=== PATIENT | female | born 1990 | race Caucasian/White ===

== ENCOUNTER 2016-12-09 21:31 | Inpatient (IN) | payer MEDICAID ==
[~2016-12-09] VITALS: Ht 149.9 cm; Wt 65.4 kg
[~2016-12-09 21:31] MED LIST: FERR27TA; [UNRECOGNIZED DRUG - OTHER]
[2016-12-09 21:38] VITALS: Ht 149.9 cm; Wt 65.4 kg
[2016-12-09] MEDS ORDERED: TERBUTALINE 0 ML ONE (22:12)
[2016-12-09 22:24] VITALS: BP 127/70; PULSE 61; RESP 18
[2016-12-09] MEDS ORDERED: TERBUTALINE 1 MG/ML INJ SC ONE (22:30)
[2016-12-09 22:55] LABS: ADD UMIC YES; URINE BILIRUBIN (Dip) NEGATIVE (NEGATIVE); URINE BLOOD (Dip) 2+ (NEGATIVE); URINE COLOR LT. YELLOW (YELLOW); URINE GLUCOSE (Dip) NEGATIVE (NEGATIVE); URINE KETONES (Dip) 15 (NEGATIVE); URINE LEUKOCYTE ESTERASE (Dip) TRACE (NEGATIVE); URINE NITRITE (Dip) NEGATIVE (NEGATIVE); URINE TOTAL PROTEIN (Dip) NEGATIVE (NEGATIVE); URINE UROBILINOGEN (Dip) 0.2 E.U./dL (0.1-1.0)
[2016-12-09] MEDS ORDERED: OXYTOCIN 30 UNITS/LR 500 ML IV PRN (23:00)
[2016-12-09] MEDS ORDERED: IBUPROFEN 600 MG TAB PO PRN (23:00)
[2016-12-09] MEDS ORDERED: CARBOPROST 250 MCG INJ IM PRN (23:00)
[2016-12-09] MEDS ORDERED: ACETAMINOPHEN/CODEINE #3 TAB PO PRN (23:00)
[2016-12-09] MEDS ORDERED: METHYLERGONOVINE 0.2 MG INJ IM PRN (23:00)
[2016-12-09] MEDS ORDERED: BUTORPHANOL 2 MG INJ IV PRN (23:00)
[2016-12-09] MEDS ORDERED: OXYTOCIN 30 UNITS/LR 500 ML IV SCH ×2 (23:00)
[2016-12-09] MEDS ORDERED: LACTATED RINGER'S 1,000 ML IV PRN (23:00)
[2016-12-09] MEDS ORDERED: LIDOCAINE 1% (MPF) 30 ML INJ INJ PRN (23:00)
[2016-12-09] MEDS ORDERED: MISOPROSTOL 200 MCG TAB PR PRN (23:00)
[2016-12-09 23:03] LABS: BACTERIA,URINE FEW; SQUAMOUS EPITHELIAL CELL,UR MANY
[2016-12-09 23:12] LABS: BASOPHILS % 0.2 % (0.0-2.0); EOSINOPHILS # 0.1 10^3/ul (0.0-0.5); EOSINOPHILS % 0.4 % (0.0-7.0); HEMATOCRIT 37.5 % (37.0-47.0); HEMOGLOBIN 12.9 g/dl (12.0-16.0); LYMPHOCYTES # 3.1 10^3/ul (0.8-2.9); LYMPHOCYTES % 22.8 % (15.0-51.0); MEAN CORPUSCULAR HEMOGLOBIN 30.1 pg (29.0-33.0); MEAN CORPUSCULAR HGB CONC 34.3 g/dl (32.0-37.0); MEAN CORPUSCULAR VOLUME 87.8 fl (82.0-101.0); MONOCYTE # 0.6 10^3/ul (0.3-0.9); MONOCYTES % 4.4 % (0.0-11.0); NEUTROPHIL # 9.9 10^3/ul (1.6-7.5); NEUTROPHILS % 72.2 % (39.0-77.0); PLATELET COUNT 235 10^3/UL (140-440); RED BLOOD COUNT 4.27 10^6/ul (4.20-5.40); RED CELL DISTRIBUTION WIDTH 13.2 % (11.5-14.5); UNCORRECTED WBC 13.7 10^3/ul (4.8-10.8); WHITE BLOOD COUNT 13.7 10^3/ul (4.8-10.8)
[2016-12-09 23:17] LABS: CONDITION 1
[2016-12-09 23:20] LABS: INR 0.88; PROTIME 11.9 Sec (12.2-14.2); PT RATIO 0.9
[2016-12-09 23:21] LABS: PARTIAL THROMBOPLASTIN TIME 29.6 Sec (25.0-35.0)
[2016-12-09] MEDS: LACTATED RINGER'S 1,000 ML IV SCH (23:36)
--- NOTE | 2016-12-09 23:40 | HP ---
Date/Time of Note Date/Time of Note DATE: 12/09/16 TIME: 23:21 OB - History Hx of Present Free Text/Dictation 26yo at 38+5 by 12wk U/S with hx of 1LTCS x1 presented to OB triage with c/ o progressively worsening contraction pain since 0700 and LOF since 1400. Pt reports normal FM and denies VB. Prior C/S was performed in 2009 2/2 distress per pt after a 24hr induction with little cervical change. OB course has been uncomplicated. Pt has hx of R breast lumpectomy in 2008 with benign pathology. She has been followed q6 months at [facility] for current R breast mass, unchanged x4 years. Estimated Due Date: Dec 18, 2016 : 2 Para: 1 Care: Good Care Ultrasounds: Normal mid trimester US Obstetrical Complications: None Medical Complications: Other (R breast mass) Past Family/Social History * Past Medical, Surgical, Family and Obstetric Histories reviewed from chart. Blood Type: O+ Rubella: immune RPR/VDRL: Negative GBS Status: Negative HBsAG: Negative OB Admission Exam Vital Signs Vital Signs Vital Signs Date Time Temp Pulse Resp B/P Pulse Ox O2 Delivery O2 Flow Rate FiO2 12/09/16 22:24 98.5 61 18 127/70 Room Air Physical Exam HEENT: WNL Heart: Other (R Breast- 2x2cm mobile mass palpated at 1-2 o'clock position) Lungs: Clear Abdomen: WNL Extremities: Normal Cervical Dilatation: 1cm Effacement: Other (90%) Station: -2 Membranes: Ruptured Amniotic Fluid: Clear Heart Rate: 120's (110s primarily) Accelerations: Accelerations Present Decelerations: No Decelerations Varibility: Moderate Contractions on Admission: < 5 Minutes Apart Intensity: Firm Last 72 hours Lab Results CBC & BMP 12/09/16 22:54 OB Assessment/Plan Other Assessment: 1) Early Labor at early term 2) Hx of C/S x1 Other plan: 1) Labor: Given pt has had a prior C/S, discussed with pt options for mode of delivery, including repeat section versus TOLAC. The risks of TOLAC after a C/S include an approximately <1% risk of uterine rupture which may result in distress and emergent delivery, increasing the risk of maternal and morbidity. Pt is also aware of the risk of failure and need for a repeat section. The expected recovery times for both modes of deliveries were discussed. Pt was made aware that if she chooses TOLAC, she may change her mind and request to proceed with a C/S at any time, if she has not yet delivered. The risks of C/S included but are not limited to pain, infection , damage to nearby organs, structures or injury to baby, bleeding possibly requiring transfusion of blood products and abnormal placentation in future pregnancies. She had an opportunity to ask questions and to discuss the options with her prior to making a decision. Pt desires to proceed with TOLAC. Consent forms for TOLAC, Repeat C/S and transfusion of blood products are in the chart. CEFM and toco. 2) ID: Pt s/p ROM x9 hours. Afebrile. GBS negative. Antibiotics are not indicated. 3) Pain: Pt desires epidural. Anesthesiologist will be consulted once admission labs are resulted. 4) FWB: Category I FHT. Reassuring 5) R Breast Mass: Asymptomatic. Continue expectant management. Pt to f/up at [facility] in 2mths for routine visit. Expectations for admission to L&D, for labor and course if she proceeds with TOLAC were explained, as were the same for repeat C/S. Pt and partner expressed understanding of discussion which was conducted in a language in which they understand. Questions were answered to their satisfaction. CHEIKH HERRERA MD Dec 09, 2016 23:36
[2016-12-09] MEDS ORDERED: FENTAnyl 2MCG/ML-ROPIV 0.2% 100 ML ONE (23:52)
--- NOTE | 2016-12-10 00:03 | TRIAGE ---
OB Triage Datetime Report Generated by CPN: 12/10/2016 00:03 Datetime: 12/09/2016 23:27 Stage of : Labor Datetime: 12/09/2016 23:15 Stage of : OB Triage Labor Evaluation Frequency: 2-5 Monitor Mode: External Duration (sec)2399: 60-130 Quality: Moderate Pattern: Normal: <= 5 Contractions in 10 Minutes Resting Tone [place]: Relaxed Heart Rate FHR Baseline Rate: 120 Monitor Mode: External US Variability: Moderate 6-25 bpm Accelerations: 15X15 Decelerations: None Category: Category I Pain Assessment Pain Scale: 8 Pain Presence: Intermittent Pain Type: Cramping; Contraction; Ache Pain Location: Abdomen; Back Pain Goal: 5 Pain Relief Measures: Comfort Measures Pain Assessment Comments: WANTS EPIDURAL Datetime: 12/09/2016 22:15 Stage of : OB Triage Temperature Route: Oral Labor Evaluation Frequency: 2-3.5 Monitor Mode: External Duration (sec)2399: 60-130 Quality: Moderate Pattern: Normal: <= 5 Contractions in 10 Minutes Resting Tone [place]: Relaxed Heart Rate FHR Baseline Rate: 125 Monitor Mode: External US Variability: Moderate 6-25 bpm Accelerations: 15X15 Decelerations: None Category: Category I Pain Assessment Pain Scale: 8 (Annotations: WHEN CXS COMES) Pain Presence: Intermittent Pain Type: Cramping; Contraction; Ache Pain Location: Abdomen; Back Pain Goal: 5 Pain Relief Measures: Comfort Measures Datetime: 12/09/2016 22:06 Vaginal Exam Dilatation (cms): 1.0 Effacement (%): 90 Station: -2 Exam By: JENNIFER Vaginal Bleeding: None Cervix, Consistency: Soft Cervix, Position: Anterior Datetime: 12/09/2016 21:51 Maternal Assessment Level of Consciousness: Fully Conscious DTR's/Clonus: DTRs 2+; No Clonus Headache: Denies Blurred Vision: No Respiratory Effort: Unlabored; Regular Rhythm; Equal Expansion Breath Sounds, Left: Clear and Equal Breath Sounds, Right: Clear and Equal Nausea/Vomiting: Denies RUQ Epigastric Pain: Denies Lower Extremities Edema: None Upper Extremities Edema: None Facial Edema: None Fall Risk Assessment History of Falling: (0) No Secondary Diagnosis: (0) No Ambulatory Aid: (0) Bedrest/Nurse Assist IV Therapy: (0) No Gait: (0) Normal/Bedrest/Immobile Mental Status: (0) Oriented to Own Ability Fall Score: 0 Fall Risk Score Definition: No Risk: No action required Datetime: 12/09/2016 21:49 Time of Arrival: 12/09/2016 21:35 EGA: 38.5 Arrived By: Wheelchair Arrived From: Home Chief Complaint: CXS SINCE 0700 AND LEAKING SINCE 1400 Movement: Present Contractions: Regular Time Contractions Began: 12/09/2016 07:00 Contractions: Q10 Rupture of Membranes: Unsure Vaginal Bleeding: None Vaginal Discharge: Denies Recent Sexual Intercouse: Denies Abdominal Trauma: Not Applicable Patient Complaints: Contractions Time Provider Notified: 12/09/2016 21:57 Provider Notified: JAVIER Initial Plan: EFM, ASSESSMENT, CALL MD FOR ORDERS Datetime: 12/09/2016 21:48 Membranes Ruptured Date/Time: 12/09/2016 14:00 Membranes Rupture Method: Spontaneous
[2016-12-10] MEDS: LACTATED RINGER'S 1,000 ML IV SCH (00:28)
[2016-12-10] MEDS ORDERED: ACETAMINOPHEN 500 MG TAB PO STA (00:42)
[2016-12-10] MEDS ORDERED: NALOXONE (0.4 MG/ML) INJ IV PRN (04:30)
[2016-12-10] MEDS ORDERED: FENTAnyl 2MCG/ML-ROPIV 0.2% 100 ML BAG EPI SCH (04:30)
[2016-12-10] MEDS ORDERED: TERBUTALINE 1 MG/ML INJ SC STA (04:52)
[2016-12-10] MEDS ORDERED: CEFAZOLIN 1 GM INJ ONE (06:17)
[2016-12-10] MEDS ORDERED: LIDOCAINE 2%/EPI 30 ML INJ ONE (06:19)
[2016-12-10] MEDS ORDERED: FENTAnyl 50 MCG/ML VIAL ONE (06:24)
[2016-12-10] MEDS ORDERED: ONDANSETRON 4 MG INJ IV PRN ×2 (06:30→07:30)
[2016-12-10] MEDS ORDERED: METOCLOPRAMIDE 10 MG INJ IV PRN (06:30)
[2016-12-10] MEDS ORDERED: HYDROmorphONE (0.2 MG/ML) 10ML SYG IV PRN ×3 (06:30)
[2016-12-10] MEDS ORDERED: DIPHENHYDRAMINE 50 MG INJ IV PRN ×2 (06:30→07:30)
[2016-12-10] MEDS ORDERED: MEPERIDINE 25 MG INJ IV PRN (06:30)
[2016-12-10] MEDS ORDERED: OXYCODONE/ACETAMINOPHEN (5/325) TAB PO PRN ×2 (06:30)
[2016-12-10] MEDS: LACTATED RINGER'S 1,000 ML IV* SCH ×3 (07:27→23:27)
--- NOTE | 2016-12-10 07:27 | LDN ---
Date/Time of Note Date/Time of Note DATE: 12/10/16 TIME: 07:27 Delivery Summary Pt progressed to c/c/-1 and labored down to 0 station. She then pushed with good effort to +2, however deep variables were noted to the 60s with pushing. The FHT returned to baseline following pushing, however at times had slow return. Variability largely moderate. Patient then began pushing with alternating contractions, however decels remained. Using a mortgage broker Octavia, stonecutter #[id number], the R/B/A of VAVD (as a double setup in the OR) versus RLTCS were discussed in detail including risks of vacuum which include but are not limited to cephalohematoma, subgaleal hemorrhage, retinal hemorrhage , shoulder dystocia, scalp lacerations and failure. The patient initially desired a RLTCS after being counseled on risks of operative delivery and pt was taken to the OR. En route, however, pt changed her mind and expressed a desire for a trial of vacuum delivery. Pt pushed under epidural anesthesia in the OR under a double setup to a via vaccuum assist of a liveborn male infant weighing 2950g with Apgars of 9 and 9 at 1 and 5 min respectively. Over three contractions with no pull-offs, the head delivered from VON position and the vacuum was removed. The R anterior shoulder followed by the posterior shoulder and the remainder of the body was delivered through a nuchal cord x1. The infant was vigorous at and placed on mother's abdomen. The pt received standard IV Pitocin. The cord was doubly clamped and cut and the baby was taken to the warmer for evaluation by RT and NICU nurses given the operative delivery. Cord blood was collected. An intact 3VC placenta spontaneously delivered shortly thereafter. The fundus was noted to be firm. Inspection of the vagina and perineum revealed a 3rd degree (3b) perineal lacerations and a hemostatic L labial laceration which was not repaired. The 3rd degree laceration was repaired with a combination of regional and local anesthesia using 0 Vicryl suture. Using end-to-end method, interrupted sutures were placed to bring the ends together. The second degree was repaired in the usual fashion using 3-0 Vicryl. The patient received Ancef 2g IV x1. Hemostasis was appropriate following repair. Several rectal examinations were done which confirmed no defect or palpable suture. Infant and mother recovering in PACU. EBL 400ml Assisted Vaginal Delivery: Vacuum Placenta Delivered: Spontaneously Meconium: none Perineum intact?: No Perineal laceration: 3 Anesthesia type: Epidural Estimated blood loss: 400 Sponge & Needle done & correct: Yes All needle counts correct: Yes Any foreign bodies felt in the: No Problems: Infant Delivery Information Sex Infant Sex: male Apgars 1 Minute: 9 5 Minute: 9 Suctioning Nose & mouth suctioned at brittnee: No Delee suction performed: No Umbilical Cord Umbilical cord with: 3 Vessels Cord presentations: nuchal cord Nuchal cord present X: 1 Mother & Baby Disposition Disposition Mom & Baby to Maternity; Good: Yes Baby to NICU: No CHEIKH HERRERA MD Dec 10, 2016 07:27
[2016-12-10] MEDS ORDERED: CARBOPROST 250 MCG INJ IM PRN (07:30)
[2016-12-10] MEDS ORDERED: BENZOCAINE 20% 56 ML SPRAY TOP PRN (07:30)
[2016-12-10] MEDS ORDERED: ACETAMINOPHEN 325 MG TAB PO PRN (07:30)
[2016-12-10] MEDS ORDERED: MISOPROSTOL 200 MCG TAB PR PRN (07:30)
[2016-12-10] MEDS ORDERED: LANOLIN 7 GM TUBE TOP PRN (07:30)
[2016-12-10] MEDS ORDERED: METHYLERGONOVINE 0.2 MG INJ IM PRN (07:30)
[2016-12-10] MEDS ORDERED: DIBUCAINE 1% 30 GM OINT PR PRN (07:30)
[2016-12-10] MEDS ORDERED: OXYTOCIN 30 UNITS/LR 500 ML IV PRN (07:30)
[2016-12-10] MEDS ORDERED: ACETAMINOPHEN/CODEINE #3 TAB PO PRN (07:30)
--- NOTE | 2016-12-10 08:54 | DELSUM ---
Delivery Summary A-C Datetime Report Generated by CPN: 12/10/2016 08:54 DELIVERY PERSONNEL Driver Guide: Celia Nelly MATERNAL INFORMATION Delivery Anesthesia: Epidural Medications in Delivery: PITOCIN Estimated Blood Loss (ml): 400 Placenta Cultured: No Maternal Complications: Other Other Maternal Complications: C/SX1 IN 2009 RN Comments: PER PT REQUEST, DR HERRERA INFORMED RISK OF . LABOR SUMMARY EDC: 12/18/2016 00:00 No. Babies in Womb: 1 Attempted: Yes Labor Anesthesia: Epidural LABOR INFORMATION Reason for Induction: Not Applicable Onset of Labor: 12/09/2016 14:00 Complete Dilatation: 12/10/2016 01:51 Oxytocin: N/A Group B Beta Strep: Negative Antibiotics # of Doses: 1 Antibiotics Time of Last Dose: 0619 12/10/16 Steroids Given: None Reason Steroids Not Administered: Not Applicable MEMBRANES Membranes Rupture Method: Spontaneous Membranes Rupture Method: Spontaneous Rupture of Membranes: 12/09/2016 14:00 Length of Rupture (hr): 16.25 Amniotic Fluid Color: Clear Amniotic Fluid Amount: Small Amniotic Fluid Odor: Normal STAGES OF LABOR Stage 1 hr: 11 Stage 1 min: 51 Stage 2 hr: 4 Stage 2 min: 24 Stage 3 hr: 0 Stage 3 min: 2 Total Time in Labor hr: 16 Total Time in Labor min: 17 VAGINAL DELIVERY Episiotomy: None Laceration Extension: Third Degree Laceration Type: Perineal Laceration Repair: Yes Initial Vag Sponge Count: 20 Final Vag Sponge Count: 20 Initial Vag Sharps Count: 1 Final Vag Sharps Count: 3 Sponge Count Correct: Yes Sharps Count Correct: Yes CSECTION DELIVERY Primary Indication: N/A BABY A INFORMATION Infant Delivery Date/Time: 12/10/2016 06:15 Method of Delivery: Vaginal Born in Route : No : Successful Forceps: N/A Vacuum Extraction: Successful Shoulder Dystocia : N/A ASSISTED DELIVERY BABY A Indication for Assisted Delivery: MULTIPLE DEVEL Catheter Prior to Procedure: Yes Station Vacuum/Forcep Apply: +3 Position Vacuum/Forcep Apply: Left Occipital Posterior Vacuum Number of Pulls: 1 Vacuum Number of PopOffs: N/A SHOULDER DYSTOCIA BABY A Infant Delivery Date/Time: 12/10/2016 06:15 PRESENTATION/POSITION BABY A Presentation: Cephalic Cephalic Presentation: Vertex Vertex Position: Left Occipital Anterior Breech Presentation: N/A PLACENTA INFORMATION BABY A Placenta Delivery Time : 12/10/2016 06:17 Placenta Method of Delivery: Spontaneous Placenta Status: Delivered SCORES BABY A Heart Rate 1 min: >100 bpm Resp Effort 1 min: Good Cry Reflex Irritability 1 min: Cough/Sneeze/Pulls Away Muscle Tone 1 min: Active Motion Color 1 min: Body [place], Extremit Blue SCORE 1 MIN: 9 Heart Rate 5 min: >100 bpm Resp Effort 5 min: Good Cry Reflex Irritability 5 min: Cough/Sneeze/Pulls Away Muscle Tone 5 min: Active Motion Color 5 min: Body [place], Extremit Blue SCORE 5 MIN: 9 INFANT INFORMATION BABY A Gestational Age at Delivery: 38.6 Gestational Status: Early Term- 37- 38.6 Weeks Infant Outcome : Liveborn Condition : Stable Sex: Male IDENTIFICATION/MEDS BABY A ID Band Number: [id number] ID Band Location: Right Leg; Left Arm Sensor Applied: Yes Sensor Number: [id number] Sensor Location : Cord Clamp Vitamin K Given : Not Given Erythromycin Given: Not Given WEIGHT/LENGTH BABY A Infant Birthweight (gm): 2950 Infant Weight (lb): 6 Weight (oz): 8 Infant Length (in): 18.50 Length (cm): 46.99 CORD INFORMATION BABY A No. Cord Vessels: 3 Nuchal Cord : Around Neck x1, Tight Cord Blood Taken: Yes Infant Suction: Mouth; Nose ASSESSMENT BABY A Infant Complications: Decreased Variability Physical Findings at Delivery: Within Normal Limits Respirations: Appears Normal Zumba Instructor/ALS Called : No Infant Care By: JENNIFER
--- NOTE | 2016-12-10 08:54 | OPRPT ---
Intraop Record Datetime Report Generated by CPN: 12/10/2016 08:54 Datetime: 12/09/2016 21:48 Food Allergies/Reactions: NO Latex Allergies/Reactions: No Latex Allergies Datetime: 12/09/2016 21:38 Drug Allergies/Reactions: No Known Allergy (12/09/2016) Datetime: 12/09/2016 21:32 Drug Allergies/Reactions: Unknown: Unable to obtain/VT (07/07/2010)
[2016-12-10] MEDS: SENNA/DOCUSATE NA (8.6MG/50MG) TAB PO SCH ×2 (09:00→21:09)
[2016-12-10 09:25] VITALS: BP 114/59; PULSE 77; RESP 16
[2016-12-10 11:36] VITALS: BP 103/61; PULSE 78; RESP 18
[2016-12-10] MEDS: IBUPROFEN 600 MG TAB PO SCH ×2 (11:36→17:38)
--- NOTE | 2016-12-10 12:18 | DS ---
Date/Time of Note Date/Time of Note DATE: 12/10/16 TIME: 12:17 Obstetrical Discharge Record Final Diagnosis Final Diagnosis: Term delivered Vaginal Delivery Obstetrical Delivery: Spontaneous Condition on Discharge Physical Assessment Last Vitals: Vital sign stable abdomen soft uterus firm lochia normal extremity normal discharged home with follow-up instruction to make appointment in 2 weeks post delivery check Laboratory Tests Test 12/09/16 21:45 12/09/16 22:00 12/09/16 22:54 Urine Bacteria FEW Urine Bilirubin NEGATIVE Urine Clarity CLEAR Urine Color LT. YELLOW Urine Glucose NEGATIVE% Urine Hemoglobin 2+ Urine Ketones 15 Urine Leukocyte Esterase TRACE Urine Microscopic RBC 2-5/HPF Urine Microscopic WBC 5-10/HPF Urine Nitrite NEGATIVE Urine Specific [place] 1.010 Urine Squamous Epithelial Cells MANY Urine Total Protein NEGATIVE Urine Urobilinogen 0.2 E.U./dL Urine pH 6.5 Membranes Rupture POSITIVE Activated Partial Thromboplast Time 29.6Sec Basophils # 0.010^3/ul Basophils % 0.2% Eosinophils # 0.110^3/ul Eosinophils % 0.4% Hematocrit 37.5% Hemoglobin 12.9g/dl INR International Normalized Ratio 0.88 Lymphocytes # 3.110^3/ul Lymphocytes % 22.8% Mean Corpuscular Hemoglobin 30.1pg Mean Corpuscular Hemoglobin Concent 34.3g/dl Mean Corpuscular Volume 87.8fl Mean Platelet Volume 9.0fl Monocytes # 0.610^3/ul Monocytes % 4.4% Neutrophils # 9.910^3/ul Neutrophils % 72.2% Nucleated Red Blood Cells # 0.010^3/ul Nucleated Red Blood Cells % 0.0/100WBC Platelet Count 74460^3/UL Prothrombin Time 11.9Sec Prothrombin Time Ratio 0.9 Red Blood Count 4.2710^6/ul Red Cell Distribution Width 13.2% White Blood Count 13.710^3/ul Current Medications Medications (Trade) Dose Ordered Sig/Vero Route PRN Reason Start Time Stop Time Status Last Admin Dose Admin Terbutaline Sulfate 0.25 mg 0.25 mg ONCE ONCE SC 12/09/16 22:30 12/09/16 22:31 DC Terbutaline Sulfate 0 ml @ STK-MED ONCE .ROUTE 12/09/16 22:12 12/09/16 22:13 DC Lactated Ringer's 1,000 ml @ 125 mls/hr Q8H IV 12/09/16 22:46 12/10/16 07:30 DC 12/10/16 00:28 Oxytocin/Lactated Ringer's 500 ml @ 0 mls/hr ONCE PRN IV For Hemorrhage Management 12/09/16 23:00 12/10/16 07:30 DC Methylergonovine Maleate (Methergine) 0.2 mg ONCE PRN IM VAGINAL BLEEDING 12/09/16 23:00 12/10/16 07:30 DC Carboprost Tromethamine (Hemabate) 250 mcg ONCE PRN IM VAGINAL BLEEDING 12/09/16 23:00 12/10/16 07:30 DC Misoprostol (Cytotec) 1,000 mcg ONCE PRN ID VAGINAL BLEEDING 12/09/16 23:00 12/10/16 07:30 DC Butorphanol Tartrate (Stadol) 2 mg Q2H PRN IV PAIN 12/09/16 23:00 12/10/16 07:30 DC Lidocaine 30 ml 30 ml ONCE PRN INJ EPISIOTOMY/TEARING 12/09/16 23:00 12/10/16 07:30 DC Oxytocin/Lactated Ringer's 500 ml @ 125 mls/hr ONCE -MAY REPEAT X1 IV 12/09/16 23:00 12/10/16 07:30 DC 12/10/16 07:08 Oxytocin/Lactated Ringer's 500 ml @ 125 mls/hr ONCE IV 12/09/16 23:00 12/10/16 07:30 DC Ibuprofen (Motrin) 600 mg ONCE PRN PO Mild Pain (Pain Score 1-3) 12/09/16 23:00 12/10/16 07:30 DC Acetaminophen/ Codeine Phosphate 2 tab 2 tab ONCE PRN PO Moderate to Severe Pain (4-10) 12/09/16 23:00 12/10/16 07:30 DC Lactated Ringer's 1,000 ml @ 2,000 mls/hr Q30M PRN IV PRE-EPIDURAL BOLUS 12/09/16 23:00 12/10/16 07:30 DC 12/09/16 23:28 Fentanyl/ Ropivacaine 100 ml @ STK-MED ONCE .ROUTE 12/09/16 23:52 12/09/16 23:53 DC Acetaminophen (Tylenol Tab) 1,000 mg ONCE STAT PO 12/10/16 00:42 12/10/16 00:45 DC 12/10/16 01:31 Naloxone HCl (Narcan) 0.2 mg Q2M PRN IV FOR RESP RATE 8 OR LESS 12/10/16 04:30 Fentanyl/ Ropivacaine 100 ml EPIDURAL (PCEA) EPI 12/10/16 04:30 Terbutaline Sulfate (Brethine) 0.25 mg NOW STAT SC 12/10/16 04:52 12/10/16 05:00 DC Cefazolin Sodium (Ancef) 1 gm STK-MED ONCE .ROUTE 12/10/16 06:17 12/10/16 06:18 DC Lidocaine/ Epinephrine (Xylocaine 2%/ Epi) 30 ml STK-MED ONCE .ROUTE 12/10/16 06:19 12/10/16 06:20 DC Fentanyl (Sublimaze) 100 mcg STK-MED ONCE .ROUTE 12/10/16 06:24 12/10/16 06:25 DC Hydromorphone HCl (Dilaudid (Rec)) 0.2 mg PACU ORDER PRN IV MILD PAIN LEVEL 1-3 12/10/16 06:30 12/10/16 07:30 DC Hydromorphone HCl (Dilaudid (Rec)) 0.4 mg PACU ORDER PRN IV MODERATE PAIN LEVEL 4-6 12/10/16 06:30 12/10/16 07:30 DC Hydromorphone HCl (Dilaudid (Rec)) 0.6 mg PACU ORDER PRN IV SEVERE PAIN LEVEL 7-10 12/10/16 06:30 12/10/16 07:30 DC Oxycodone/ Acetaminophen (Percocet (5/ 325)) 1 tab PACU ORDER PRN PO PAIN LEVEL 1-5 12/10/16 06:30 12/10/16 07:30 DC Oxycodone/ Acetaminophen (Percocet (5/ 325)) 2 tab PACU ORDER PRN PO PAIN LEVEL 6-10 12/10/16 06:30 12/10/16 07:30 DC Ondansetron HCl (Zofran Inj) 4 mg PACU ORDER PRN IV NAUSEA AND/OR VOMITING 12/10/16 06:30 12/10/16 07:30 DC Metoclopramide HCl (Reglan) 10 mg PACU ORDER PRN IV NAUSEA AND/OR VOMITING 12/10/16 06:30 12/10/16 07:30 DC Meperidine HCl (Demerol) 25 mg PACU ORDER PRN IV POST-OP RIGORS 12/10/16 06:30 12/10/16 07:30 DC Diphenhydramine HCl 25 mg 25 mg PACU ORDER PRN IV PRURITUS 12/10/16 06:30 12/10/16 07:30 DC Lactated Ringer's (Lr) 1,000 ml @ 125 mls/hr Q8H IV* 12/10/16 07:27 12/10/16 10:55 Ibuprofen (Motrin) 600 mg Q6 PO 12/10/16 12:00 12/10/16 11:36 Acetaminophen/ Codeine Phosphate (Tylenol No.3) 1 tab Q4H PRN PO PAIN LEVEL 1-5 12/10/16 07:30 Acetaminophen/ Codeine Phosphate (Tylenol No.3) 2 tab Q4H PRN PO PAIN LEVEL 6-10 12/10/16 07:30 Ondansetron HCl (Zofran Inj) 4 mg Q6H PRN IV NAUSEA AND/OR VOMITING 12/10/16 07:30 Diphenhydramine HCl (Benadryl) 25 mg Q6H PRN IV PRURITUS 12/10/16 07:30 Senna/Docusate Sodium (Senokot-S) 1 tab BID PO 12/10/16 09:00 Benzocaine (Dermoplast [place]) 1 spray BEDSIDE MEDICATION PRN TOP HEMORRHOID/EPISIOTMY PAIN 12/10/16 07:30 12/10/16 10:03 Dibucaine (Nupercainal) 1 applic BEDSIDE MEDICATION PRN ID HEMORRHOID/EPISIOTMY PAIN 12/10/16 07:30 Lanolin ([id number]) 1 applic BEDSIDE MEDICATION PRN TOP BEDSIDE FOR GUEVARA TO NIPPLES 12/10/16 07:30 12/10/16 10:03 Diphtheria/ Tetanus/Acell Pertussis (Adacel) 0.5 ml ONCE ONCE IM* 12/12/16 09:00 12/12/16 09:01 Acetaminophen 650 mg 650 mg Q4H PRN PO ELEVATED TEMPERATURE 12/10/16 07:30 12/10/16 08:56 Oxytocin/Lactated Ringer's 500 ml @ 0 mls/hr ONCE PRN IV For Hemorrhage Management 12/10/16 07:30 Methylergonovine Maleate (Methergine) 0.2 mg ONCE PRN IM VAGINAL BLEEDING 12/10/16 07:30 Carboprost Tromethamine (Hemabate) 250 mcg ONCE PRN IM VAGINAL BLEEDING 12/10/16 07:30 Misoprostol (Cytotec) 1,000 mcg ONCE PRN ID VAGINAL BLEEDING 12/10/16 07:30 Voiding: Yes Bowel Movement: Yes Breast: Soft, non-tender, Filling Fundus: Firm Calf Tenderness: No Patient Condition: Good NANDA HOPKINS MD Dec 10, 2016 12:18
[2016-12-10] MEDS: ACETAMINOPHEN/CODEINE #3 TAB PO PRN ×2 (12:43→21:57)
[2016-12-10 16:00] VITALS: BP 104/53; PULSE 75; RESP 19
[2016-12-10 19:30] VITALS: BP 105/55; PULSE 80; RESP 18
[2016-12-11] MEDS: IBUPROFEN 600 MG TAB PO SCH ×5 (00:09→23:52)
[2016-12-11 04:00] VITALS: BP 103/52; PULSE 65; RESP 18
[2016-12-11] MEDS: LACTATED RINGER'S 1,000 ML IV* SCH ×3 (07:27→23:27)
[2016-12-11 08:20] VITALS: BP 120/64; PULSE 70; RESP 16
[2016-12-11 08:25] LABS: BASOPHILS % 0.3 % (0.0-2.0); EOSINOPHILS # 0.2 10^3/ul (0.0-0.5); HEMATOCRIT 30.5 % (37.0-47.0); HEMOGLOBIN 10.4 g/dl (12.0-16.0); LYMPHOCYTES # 3.8 10^3/ul (0.8-2.9); LYMPHOCYTES % 24.4 % (15.0-51.0); MEAN CORPUSCULAR HEMOGLOBIN 30.6 pg (29.0-33.0); MEAN CORPUSCULAR HGB CONC 34.1 g/dl (32.0-37.0); MEAN CORPUSCULAR VOLUME 89.5 fl (82.0-101.0); MEAN PLATELET VOLUME 9.6 fl (7.4-10.4); MONOCYTE # 0.6 10^3/ul (0.3-0.9); NEUTROPHIL # 10.9 10^3/ul (1.6-7.5); NEUTROPHILS % 70.3 % (39.0-77.0); PLATELET COUNT 231 10^3/UL (140-440); RED CELL DISTRIBUTION WIDTH 13.8 % (11.5-14.5); UNCORRECTED WBC 15.5 10^3/ul (4.8-10.8); WHITE BLOOD COUNT 15.5 10^3/ul (4.8-10.8)
[2016-12-11 08:38] LABS: CONDITION 1
[2016-12-11] MEDS: SENNA/DOCUSATE NA (8.6MG/50MG) TAB PO SCH ×2 (09:00→20:54)
[2016-12-11] MEDS ORDERED: INFLUENZA VIRUS VACCINE 0.5 ML (DISPENSING) IM* ONE (10:00)
[2016-12-11 16:15] VITALS: BP 100/62; PULSE 65; RESP 72
--- NOTE | 2016-12-11 17:00 | PN ---
Date/Time of Note Date/Time of Note DATE: 12/11/16 TIME: 16:57 OB Subjective Subjective Subjective day 1 Vital sign a stable afebrile abdomen soft uterus firm lochia normal extremity normal NANDA HOPKINS MD Dec 11, 2016 17:00
[2016-12-11 19:40] VITALS: BP 111/53; PULSE 71; RESP 18
[2016-12-12 04:05] VITALS: BP 99/53; PULSE 63; RESP 18
[2016-12-12] MEDS: IBUPROFEN 600 MG TAB PO SCH ×2 (05:35→11:53)
[2016-12-12 08:10] VITALS: BP 103/51; PULSE 59; RESP 19
[2016-12-12] MEDS ORDERED: DIPHTH/TET/ACEL PERTUSS (ADULT) 0.5 ML VIAL IM* ONE (09:00)
[2016-12-12] MEDS ORDERED: INFLUENZA VIRUS VACCINE 0.5 ML (DISPENSING) IM* ONE (09:00)
[2016-12-12] MEDS: SENNA/DOCUSATE NA (8.6MG/50MG) TAB PO SCH (09:13)
== END 2016-12-12 15:27 | disposition home or self-care (01) | DRG 775 ==
LOC: OBT 21:31 → L-D 21:33 → OBT 23:17 → L-D 23:17 → PP1 12-10 09:55
PROVIDERS: ADMIT Obstetrics & Gynecology; ATTEND Obstetrics & Gynecology
PROC: 10D07Z6 Extraction of Products of Conception, Vacuum, Via Natural or Artificial Opening (ICD-10-PCS; principal; 2016-12-10)
PROC: 0DQR0ZZ Repair Anal Sphincter, Open Approach (ICD-10-PCS; 2016-12-10)
PROC: 3E00X4Z Introduction of Serum, Toxoid and Vaccine into Skin and Mucous Membranes, External Approach (ICD-10-PCS; 2016-12-11)
DX: O69.81X0 Labor and delivery complicated by cord around neck, without compression, not applicable or unspecified (principal); O70.20 Third degree perineal laceration during delivery, unspecified; O34.211 Maternal care for low transverse scar from previous cesarean delivery; Z23 Encounter for immunization; Z3A.38 38 weeks gestation of pregnancy; Z37.0 Single live birth
CPT/HCPCS: 36415; 62319; 81001; 81003; 84112; 85025; 85610; 85730; 86592; 86850; 86900; 86901; 86920; 90686; 90715; 99464; G0463; J0690; J2590; J3010; J3105; J7120

== ENCOUNTER 2019-06-05 07:27 | Inpatient (IN) | payer MEDICAID ==
[~2019-06-05] VITALS: Ht 157.5 cm; Wt 71.2 kg
[2019-06-05 07:51] VITALS: Ht 157.5 cm; Wt 71.2 kg
[2019-06-05 07:52] VITALS: BP 125/71; PULSE 75; RESP 19
[2019-06-05] MEDS ORDERED: LACTATED RINGER'S 1,000 ML IV ONE (08:00)
[2019-06-05] MEDS ORDERED: LACTATED RINGER'S 1,000 ML IV SCH ×3 (08:00→20:00)
[2019-06-05] MEDS ORDERED: OXYTOCIN 30 UNITS/LR 500 ML IV SCH ×2 (10:00→12:42)
[2019-06-05] MEDS ORDERED: MISOPROSTOL 200 MCG TAB PR PRN ×2 (10:00→13:00)
[2019-06-05] MEDS ORDERED: OXYTOCIN 30 UNITS/LR 500 ML IV PRN ×2 (10:00→13:00)
[2019-06-05] MEDS ORDERED: METHYLERGONOVINE 0.2 MG INJ IM PRN ×2 (10:00→13:00)
[2019-06-05] MEDS ORDERED: CARBOPROST 250 MCG INJ IM PRN ×2 (10:00→13:00)
--- NOTE | 2019-06-05 10:16 | TRIAGE ---
OB Triage Datetime Report Generated by CPN: 06/05/2019 10:15 Datetime: 06/05/2019 09:30 Labor Evaluation Frequency: irregular Monitor Mode: External Duration (sec)2399: 50-90 Quality: Mild Pattern: Normal: <= 5 Contractions in 10 Minutes Resting Tone [place]: Relaxed Heart Rate FHR Baseline Rate: 135 Monitor Mode: External US Variability: Moderate 6-25 bpm Accelerations: 15X15 Decelerations: None Category: Category I Datetime: 06/05/2019 08:01 Vaginal Exam Dilatation (cms): 0.0 Effacement (%): 0 Station: -3 Exam By: Mio LAXMI Datetime: 06/05/2019 07:57 Assessment Type: Triage Maternal Assessment Level of Consciousness: Keenly Alert, Responsive DTR's/Clonus: DTRs 2+; No Clonus Headache: Denies Blurred Vision: No Respiratory Effort: Unlabored; Regular Rhythm; Equal Expansion Breath Sounds, Left: Clear and Equal Breath Sounds, Right: Clear and Equal Nausea/Vomiting: Denies RUQ Epigastric Pain: Denies Lower Extremities Edema: None Degree: None Upper Extremities Edema: None Degree: None Facial Edema: None Fall Risk Assessment History of Falling: (0) No Secondary Diagnosis: (0) No Ambulatory Aid: (0) Bedrest/Nurse Assist IV Therapy: (0) No Gait: (0) Normal/Bedrest/Immobile Mental Status: (0) Oriented to Own Ability Fall Score: 0 Fall Risk Score Definition: No Risk: No action required Labor Evaluation Frequency: IRREG Monitor Mode: External Duration (sec)2399: 50-100 Quality: Mild Pattern: Normal: <= 5 Contractions in 10 Minutes Resting Tone [place]: Relaxed Heart Rate FHR Baseline Rate: 145 Monitor Mode: External US Variability: Moderate 6-25 bpm Accelerations: 15X15 Decelerations: None Category: Category I Datetime: 06/05/2019 07:56 Time of Arrival: 06/05/2019 07:21 EGA: 37.4 Arrived By: Ambulatory Arrived From: Home Chief Complaint: UC'S SINCE 1930 06/04/19 Movement: Present Contractions: Irregular Time Contractions Began: 06/04/2019 19:30 Rupture of Membranes: Denies Vaginal Bleeding: None Vaginal Discharge: Denies Recent Sexual Intercouse: Denies Abdominal Trauma: Not Applicable Time Provider Notified: 06/05/2019 08:04 Provider Notified: dr ojeda Initial Plan: NST
--- NOTE | 2019-06-05 11:03 | PREAC ---
Date/Time of Note Date/Time of Note DATE: 06/05/19 TIME: 11:03 Anesthesia Eval and Record Evaluation Time Pre-Procedure Interview DATE: 06/05/19 TIME: 11:03 Age 28 Sex female NPO: 8 hrs Preoperative diagnosis previous c section Planned procedure repeat c section Past Medical History Past Medical History: None Surgery & Anesthesia Issues No known issue Meds Anticoagulation: No Beta Ben within 24 hr: No Reason Beta Ben not given: Pt. not on B-Ben Reported Medications Ferrous Sulfate (Iron) 1 Tab Tablet 07/07/10 Pv W-O Vit A/Fe Fumarate/Fa (Precare Caplet) 1 Tab Tablet 07/07/10 Current Medications Lactated Ringer's 1,000 ml @ 125 mls/hr Q8H IV Last administered on 06/05/19at 10:31; Admin Dose 125 MLS/HR; Start 06/05/19 at 08:00 Lactated Ringer's 1,000 ml @ 125 mls/hr Q8H IV Last administered on 06/05/19at 10:54; Admin Dose 125 MLS/HR; Start 06/05/19 at 09:46 Cefazolin Sodium/ Dextrose 50 ml @ 100 mls/hr ONCE IVPB ; Start 06/05/19 at 10:00 Oxytocin/Lactated Ringer's 500 ml @ 125 mls/hr POST IV ; Start 06/05/19 at 10:00 Oxytocin/Lactated Ringer's 500 ml @ 0 mls/hr ONCE PRN IV .VAGINAL BLEEDING; Start 06/05/19 at 10:00 Methylergonovine Maleate (Methergine) 0.2 mg ONCE PRN IM .VAGINAL BLEEDING; Start 06/05/19 at 10:00 Carboprost Tromethamine (Hemabate) 250 mcg ONCE PRN IM .VAGINAL BLEEDING; Start 06/05/19 at 10:00 Misoprostol (Cytotec) 1,000 mcg ONCE PRN NC .VAGINAL BLEEDING; Start 06/05/19 at 10:00 Meds reviewed: Yes Allergies Coded Allergies: No Known Allergy (Unverified , 12/09/16) Allergies Reviewed: Yes Labs/Studies Labs Reviewed: Reviewed by anesthesiologist Result Diagram: 06/05/19 0850 Laboratory Tests 06/05/19 08:50 Blood Bank Test 06/05/19 08:50 Antibody Screen NEGATIVE Blood Type O POSITIVE Rh Immune Globulin Candidate NO test: N/A Pre-procedure Exam Last vitals Vital Signs Date Temp Pulse Resp B/P (MAP) Pulse Ox O2 O2 Flow FiO2 Time Delivery Rate 06/05/19 98.4 75 19 125/71 Room Air 07:52 (89) Airway: Adequate mouth opening, Adequate thyromental dist Mallampati: Mallampati IV Teeth: Normal Lung: Normal Heart: Normal ASA Physical Status ASA physical status: 2 Emergency: None Pre-operative Attestations Prior to commencing anesthesia and surgery, the patient was re-evaluated, there was verification of: *The patient's identity *The results of appropriate recent lab work and preoperative vital signs *The above evaluation not changing prior to induction *Anesthetic plan, risk benefits, alternative and complications discussed with patient/family; questions answered; patient/family understands, accepts and wishes to proceed. KELLI BENTLEY DO Jun 05, 2019 11:03
[2019-06-05] MEDS ORDERED: ONDANSETRON 4 MG INJ IV PRN (11:30)
[2019-06-05] MEDS ORDERED: ZOLPIDEM 5 MG TAB PO PRN (11:30)
[2019-06-05] MEDS ORDERED: HYDROmorphONE 0.5 MG/0.5 ML SYG IV PRN ×2 (11:30)
[2019-06-05] MEDS ORDERED: DIPHENHYDRAMINE 50 MG INJ IV PRN (11:30)
[2019-06-05] MEDS ORDERED: NALOXONE (0.4 MG/ML) INJ IV PRN (11:30)
[2019-06-05] MEDS ORDERED: morphine SULFATE/PF (10 MG/10 ML) INJ ONE (11:35)
[2019-06-05] MEDS ORDERED: FENTAnyl 50 MCG/ML VIAL ONE (11:35)
[2019-06-05] MEDS ORDERED: DEXAMETHASONE 4 MG/ML 1 ML INJ ONE (11:46)
[2019-06-05] MEDS ORDERED: FAMOTIDINE 20 MG INJ ONE (11:46)
[2019-06-05] MEDS: CEFAZOLIN 2 GM/50 ML (PMX) 50 ML IVPB SCH ×3 (11:53→18:08)
[2019-06-05] MEDS ORDERED: MIDAZOLAM 1 MG/ML 2 ML INJ ONE (12:24)
[2019-06-05] MEDS ORDERED: KETAMINE (50 MG/ML) 10 ML VIAL ONE (12:26)
--- NOTE | 2019-06-05 12:32 | PAC ---
Date/Time of Note Date/Time of Note DATE: 06/05/19 TIME: 12:30 Post-Anesthesia Notes Post-Anesthesia Note Last documented vital signs Vital Signs Date Temp Pulse Resp B/P (MAP) Pulse Ox O2 O2 Flow FiO2 Time Delivery Rate 06/05/19 98 70 19 95/59 97 Room Air 1235 Activity: WNL Respiratory function: WNL Cardiovascular function: WNL Mental status: Baseline Pain reasonably controlled: Yes Hydration appropriate: Yes Nausea/Vomiting absent: Yes KELLI BENTLEY DO Jun 05, 2019 12:32
--- NOTE | 2019-06-05 12:36 | PREOPHP ---
DATE OF ADMISSION: 06/05/2019 HISTORY OF PRESENT ILLNESS: The patient is a 28-year-old 3, para 2, EDC 06/22/2019 intrauter ine at 37 weeks gestational age, presented to triage complaining of regular contractions si nce early this morning. She reports of pain scale 6/10. She has a significant history of 1 previous , and desires elective repeat delivery with a tubal sterilization. She denies any vaginal bleeding or discharge. [facility] care took place at [facility]. PAST MEDICAL HISTORY: None. MEDICATIONS: vitamins. PAST SURGICAL HISTORY: x1 previous section. OBSTETRICAL HISTORY: x1 previous section, x1 vaginal delivery. GYNECOLOGIC HISTORY: 12, regular 3 to 4 days. Denies any sexually transmitted infections. Sexually active with 1 partner. SOCIAL HISTORY: Denies any smoking, drugs or alcohol. FAMILY HISTORY: None. REVIEW OF SYSTEMS: All within normal except history of present illness. PHYSICAL EXAMINATION: HEENT: Within normal. LUNGS: CTA bilateral. CARDIOVASCULAR: S1, S2, regular rhythm. ABDOMEN: Gravid, nontender. Negative CVA bilateral. EXTREMITIES: Negative edema. No calf tenderness. PELVIC: Vaginal exam 250, -2. heart tracing category 1. [place] regular contractions. ASSESSMENT: Intrauterine at 37 weeks gestational age, in labor. Previous x1, de sires elective repeat delivery with bilateral tubal sterilization. PLAN: Consent for repeat delivery with bilateral tubal sterilization. Risks, benefits and alternatives explained. All questions were answered. Dictated By: VIVIENNE JOSE/SHADI Conf#: [id number] DID#: [id number]
--- NOTE | 2019-06-05 12:42 | OPPN ---
Date/Time of Note Date/Time of Note DATE: 06/05/19 TIME: 12:40 Operative Report Planned Procedure Procedure date Jun 05, 2019 Procedure(s) repeat low transverse CD with bilateral tubal ligation (fanta method) Performed by see signature line Rubbish Collector: MINERVA DIAZ MD 2nd Rubbish Collector none Anesthesiologist: KELLI BENTLEY DO Pre-procedure diagnosis Intrauterine at 37 weeks gestational age, in labor. Previous C-s ection x1, desires elective repeat delivery with bilateral tubal sterilization., decline [id number] Anesthesia Type: [id number] spinal Post-Procedure Post-procedure diagnosis same Findings a viable male 8/9, weight 6lb 50z normal uterus tubes and ovaries Estimated Blood Loss: 500 - 600 mls (500) Specimen(s) portions of right and left fallopian tube Grafts/Implant(s) none Complication(s) none VIVIENNE TOSCANO MD Jun 05, 2019 12:42
[2019-06-05] MEDS ORDERED: NACL 0.9% 3 ML SYG IV SCH (13:00)
[2019-06-05] MEDS ORDERED: CEFAZOLIN 2 GM/50 ML (PMX) 50 ML IVPB SCH (13:00)
[2019-06-05] MEDS ORDERED: LANOLIN HPA 1 PKT TOP PRN (13:00)
[2019-06-05] MEDS: KETOROLAC 30 MG INJ IV PRN ×2 (13:50→20:38)
[2019-06-05 15:00] VITALS: BP 139/68; PULSE 79; RESP 20
--- NOTE | 2019-06-05 15:11 | OPR ---
DATE OF OPERATION: 06/05/2019 PREOPERATIVE DIAGNOSES: Intrauterine at 37 weeks gestational age in labor, previous C-sect ion x1, desires elective repeat delivery with bilateral tubal sterilization, declines vagina l after . POSTOPERATIVE DIAGNOSES: Intrauterine at 37 weeks gestational age in labor, previous C-sec tion x1, desires elective repeat delivery with bilateral tubal sterilization, declines vagin al after . OPERATION PERFORMED: Repeat low transverse delivery with bilateral tubal ligation, Rajan method. SURGEON: Jovanny Shannon MD OPTICAL ENGINEERING TECHNICIAN: Dr. Caldwell. ANESTHESIA: Spinal. ANESTHESIOLOGIST: Dr. Andrew Núñez. COMPLICATIONS: None. ESTIMATED BLOOD LOSS: 500 mL. FINDINGS: A viable male, 8 and 9 respectively at 1 and 5 minutes, weight 6 pounds 5 ounces. N ormal uterus, tubes and ovaries. DESCRIPTION OF PROCEDURE: After explaining the risks, benefits and alternatives, the patient and con sent signed in chart, the patient was taken to the operating room where spinal anesthesia was found t o be adequate. She was then prepared and draped in normal sterile fashion in dorsal supine position with a leftward tilt. A Pfannenstiel skin incision was then made with a scalpel and [facility]. The fascia was incised in the midline and incision was extended laterally with March o scissors. The superior aspect of the fascial incision was grasped with curved clamps, elevated and the underlying rectus muscles dissected off bluntly. Attention was then turned to the inferior aspe ct of incision, which in similar fashion was grasped, tented up with curved clamps and rectus muscles dissected off bluntly. The rectus muscle was in midline, peritoneum identified, tented up and entered sharply with Metzenbaum scissors. The peritoneal incision was extended superiorly with good visualization of bladder. The bladder blade was inserted and the lower segment incised in trans verse fashion with the scalpel. The bladder blade was removed and the 's head delivered atraum atically. The nose and mouth were suctioned and cord clamped and cut. The infant was handed off to waiting planting material unloader. The placenta was then removed. The uterus was exteriorized and cleared of all clots and debris. The uterine incision was repaired with 1-0 chromic in a running locked fashion. A second layer of same suture was used for imbrication obtaining excellent hemostasis. At this point a Perla was used to grasp the right fallopian tube 3 cm from the cornual region and then ligated w ith a free tie of plain gut and excised with good hemostasis noted. Similarly, the left fallopian tu be was excised and good hemostasis was assured and noted. At this point, the uterus was returned to the abdomen. The gutters were cleared of all clots. The peritoneum and rectus abdominis muscles wer e reapproximated with 2-0 Monocryl in an interrupted fashion. The fascia was reapproximated with 0 V icryl in a running fashion. The subcutaneous tissue was reapproximated with 2-0 plain gut in a runni ng fashion. The skin was closed with absorbable chuck. The patient tolerated the procedure well. All counts were correct. The patient was taken to recovery room in stable condition. Dictated By: JOVANNY JOSE/SHADI Conf#: [id number] DID#: [id number]
[2019-06-05 16:00] VITALS: BP 133/66; PULSE 78; RESP 18
[2019-06-05] MEDS ORDERED: IBUPROFEN 600 MG TAB PO SCH (18:00)
[2019-06-05 20:00] VITALS: BP 117/65; PULSE 85; RESP 18
[2019-06-06] VITALS: BP 104/55; PULSE 76; RESP 18
[2019-06-06] MEDS: CEFAZOLIN 2 GM/50 ML (PMX) 50 ML IVPB SCH ×2 (02:15→09:51)
[2019-06-06] MEDS: KETOROLAC 30 MG INJ IV PRN ×2 (02:35→09:50)
[2019-06-06 04:00] VITALS: BP 111/55; PULSE 73; RESP 18
[2019-06-06] MEDS: IBUPROFEN 600 MG TAB PO SCH ×2 (12:00→17:47)
--- NOTE | 2019-06-06 12:10 | QN ---
Documentation Comment POD#1 is stable afebrile +Flatus No VB +voids VS stable Gen NAD Abd soft NT ND Dressing to be removed Genitalia No blood at perineum -->Ambulation HAI SCUHLTZ M.D. Jun 06, 2019 12:10
[2019-06-06 15:30] VITALS: BP 109/62; PULSE 83; RESP 18
[2019-06-06] MEDS ORDERED: MAGNESIUM HYDROXIDE 30ML CUP PO ONE (16:30)
[2019-06-06] MEDS ORDERED: OXYCODONE/ACETAMINOPHEN (5/325) TAB ONE (19:14)
[2019-06-06] MEDS: OXYCODONE/ACETAMINOPHEN (5/325) TAB PO PRN (19:16)
[2019-06-06 20:50] VITALS: BP 114/59; PULSE 70; RESP 17
[2019-06-06] MEDS: DOCUSATE SODIUM 100 MG CAP PO SCH (21:02)
[2019-06-07] MEDS: OXYCODONE/ACETAMINOPHEN (5/325) TAB PO PRN ×3 (01:06→19:43)
[2019-06-07] MEDS: IBUPROFEN 600 MG TAB PO SCH ×5 (01:06→23:52)
[2019-06-07 04:00] VITALS: BP 98/50; PULSE 70; RESP 18
[2019-06-07 08:00] VITALS: BP 104/51; PULSE 77; RESP 18
[2019-06-07] MEDS: DOCUSATE SODIUM 100 MG CAP PO SCH ×2 (11:46→21:21)
--- NOTE | 2019-06-07 12:42 | QN ---
Documentation Comment POD #2 s/p repeat . Pt reports less than adequate pain relief and was last given Motrin and received one Percocet a 0100 this AM. She is requesting 2 tabs now. +Flatus. No N/V. Fundus firm Incision is clean, dry and intact with old blood present only. Lochia minimal. Ext NT, no edema. T= 98.1 BP 104/51 P: Continue care and plan d/c tomorrow. Wrote an order for Percocet 2 tabs q 4 hours prn to accompany the one tab for a lower level of pain. Instructed the nurse that she would like 2 tabs now. Expect d/c home tomorrow. KINGA FREITAS MD Jun 07, 2019 12:42
[2019-06-07 16:00] VITALS: BP 119/55; PULSE 70; RESP 18
[2019-06-07 19:45] VITALS: BP 119/61; PULSE 74; RESP 18
[2019-06-08 03:58] VITALS: BP 115/58; PULSE 75; RESP 18
[2019-06-08] MEDS: IBUPROFEN 600 MG TAB PO SCH ×2 (05:42→12:31)
[2019-06-08 08:00] VITALS: BP 106/58; PULSE 70; RESP 16
[2019-06-08] MEDS: DOCUSATE SODIUM 100 MG CAP PO SCH (09:29)
--- NOTE | 2019-06-08 11:19 | QN ---
Documentation Comment POD#3 is stable afebrile tolerates diet No VB +BM +voids VS stable Gen NAD Abd soft NT ND Incision intact Genitalia No blood at perineum --->Discharge plan HAI SCHULTZ M.D. Jun 08, 2019 11:19
--- NOTE | 2019-06-08 11:20 | DS ---
Date/Time of Note Date/Time of Note DATE: 06/08/19 TIME: 11:19 Discharge Summary Admission/Discharge Info Admit Date/Time Jun 05, 2019 at 09:50 Discharge Date/Time 06/08/2019 Discharge Diagnosis Patient Condition: Good Hospital Course uneventful Home Meds Reported Medications Ferrous Sulfate (Iron) 1 Tab Tablet 07/07/10 Pv W-O Vit A/Fe Fumarate/Fa (Precare Caplet) 1 Tab Tablet 07/07/10 Primary Care Provider Care Physician No Primary HAI SCHULTZ M.D. Jun 08, 2019 11:20
[2019-06-08] MEDS ORDERED: DIPHTH/TET/ACEL PERTUSS (ADULT) 0.5 ML VIAL IM* ONE (13:00)
--- NOTE | 2019-06-09 15:50 | DELSUM ---
Delivery Summary A-C Datetime Report Generated by CPN: 06/09/2019 15:50 DELIVERY PERSONNEL Fountain Roller Assembler: Cubil, Ondina MATERNAL INFORMATION Delivery Anesthesia: Spinal Medications in Delivery: see anesthesia Delivery QBL (ml): 500 Placenta Cultured: No Maternal Complications: Other Other Maternal Complications: PREVOUS SECTION, HAD I , BUT REFUSING TO HAVE VAGINAL DEL DWAYNE THIS TIME LABOR SUMMARY EDC: 06/22/2019 00:00 No. Babies in Womb: 1 Attempted: 1 Labor Anesthesia: None LABOR INFORMATION Reason for Induction: Not Applicable Onset of Labor: 06/04/2019 19:30 Group B Beta Strep: Done, Result Unknown Antibiotics # of Doses: 1 Antibiotics Time of Last Dose: 06/05/2019 11:53 Steroids Given: None Reason Steroids Not Administered: Not Applicable MEMBRANES Membranes Rupture Method: Artificial Rupture of Membranes: 06/05/2019 12:02 Length of Rupture (hr): 0.00 Amniotic Fluid Color: Clear Amniotic Fluid Amount: Moderate Amniotic Fluid Odor: Normal STAGES OF LABOR Stage 3 hr: 0 Stage 3 min: 1 Total Time in Labor hr: 16 Total Time in Labor min: 33 CSECTION DELIVERY Primary Indication: Repeat Elective Secondary Indication: Other Other Secondary Indication: bilateral tubal ligation CSection Urgency: Non Elective CSection Incidence: Repeat Labor: Labor Elective: Nonelective CSection Incision: Lower Uterine Transverse Sterilization Procedure: Rajan BABY A INFORMATION Delivery Date/Time: 06/05/2019 12:02 Method of Delivery: Born in Route : No : N/A Forceps: N/A Vacuum Extraction: N/A Shoulder Dystocia : N/A SHOULDER DYSTOCIA BABY A Delivery Date/Time: 06/05/2019 12:02 PRESENTATION/POSITION BABY A Presentation: Cephalic Cephalic Presentation: Vertex Vertex Position: Right Occipital Posterior Breech Presentation: N/A PLACENTA INFORMATION BABY A Placenta Delivery Time : 06/05/2019 12:03 Placenta Method of Delivery: Manual Removal Placenta Status: Delivered SCORES BABY A Heart Rate 1 min: >100 bpm Resp Effort 1 min: Good Cry Reflex Irritability 1 min: Cough/Sneeze/Pulls Away Muscle Tone 1 min: Active Motion Color 1 min: Blue/Pale Resuscitation Effort 1 min: Tactile Stimulation SCORE 1 MIN: 8 Heart Rate 5 min: >100 bpm Resp Effort 5 min: Good Cry Reflex Irritability 5 min: Cough/Sneeze/Pulls Away Muscle Tone 5 min: Active Motion Color 5 min: Body Jud, Extremit Blue Resuscitation Effort 5 min: Tactile Stimulation SCORE 5 MIN: 9 INFORMATION BABY A Gestational Age at Delivery: 37.4 Gestational Status: Early Term- 37- 38.6 Weeks Infant Outcome : Liveborn, with signs of life Infant Condition : Stable Infant Sex: Male IDENTIFICATION/MEDS BABY A ID Band Number: [id number] ID Band Location: Right Leg; Right Arm Sensor Applied: Yes Sensor Number: [id number] Sensor Location : Cord Clamp Vitamin K Given : Not Given Erythromycin Given: Not Given WEIGHT/LENGTH BABY A Infant Birthweight (gm): 2870 Weight (lb): 6 Infant Weight (oz): 5 Length (in): 19.00 Infant Length (cm): 48.26 CORD INFORMATION BABY A No. Cord Vessels: 3 Nuchal Cord : N/A Cord Blood Taken: Yes Infant Suction: Mouth; Nose ASSESSMENT BABY A Infant Complications: None Physical Findings at Delivery: Within Normal Limits Physical Findings- Other: hypospadia Infant Respirations: Appears Normal Reeling And Tubing Machine Operator/ALS Called : No Infant Care By: Jasmine rn Transferred To: Remains with Mother
== END 2019-06-08 14:20 | disposition home or self-care (01) | DRG 785 ==
LOC: OBT 07:27 → L-D 07:28 → OBT 09:00 → L-D 09:50 → PP1 14:39
PROVIDERS: ADMIT Obstetrics & Gynecology; ATTEND Obstetrics & Gynecology
PROC: 0UB70ZZ Excision of Bilateral Fallopian Tubes, Open Approach (ICD-10-PCS; 2019-06-05)
PROC: 10D00Z1 Extraction of Products of Conception, Low, Open Approach (ICD-10-PCS; principal; 2019-06-05 12:00)
DX: O34.211 Maternal care for low transverse scar from previous cesarean delivery (principal); Z3A.37 37 weeks gestation of pregnancy; Z37.0 Single live birth; Z30.2 Encounter for sterilization
CPT/HCPCS: 76818; 85025; 85610; 85730; 86592; 86850; 86900; 86901; 87340; 88302; 99464; G0463; J0690; J1100; J1170; J1885; J2250; J2274; J2405; J2590; J3010; J7120